=== PATIENT | female | born 1975 | race Caucasian/White ===

== ENCOUNTER → 2018-05-17 | Outpatient (CLI) | payer OTHER ==
[~2018-05-17] MED LIST: ALBU18HF INHALATION; AZIT250T13 PO; CARB200T43 PO; ONDA4TAB35 PO; TOPI50TA13 PO
--- NOTE | 2018-05-23 13:11 | SP ---
DATE OF PROCEDURE: 05/17/2018 OUTPATIENT STUDY: Electroencephalogram. INDICATION: A 43-year-old lady with history of seizures since age 7, on Keppra, last episode in the morning on the day of recording. DESCRIPTION OF PROCEDURE: Routine EEG was recorded digitally. Ejdts-vt-dxypy and vnobc-xs-inm viraj ges were recorded and reviewed. All impedances were measured and recorded. Cap electrodes were plac ed in accordance to International 10-20 system of electrode placement. FINDINGS: Symmetrically distributed background activity of low to medium amplitude ranging between 1 0 to 12 cycles per second was seen throughout the recording in the awake state. Photic stimulation p roduces normal driving. Hyperventilation elicited mild background slowing, but no epileptiform activ ity. When patient gets drowsy, background rhythm also gets slightly slower, 4 to 6 cycles per second . No epileptiform transients were seen. No signs of ongoing electrographic seizures or lateralized slo wing. IMPRESSION: Essentially normal study. Please correlate clinically. Dictated By: EULA PATEL/ANGEL Conf#: [id number] DID#: [id number]
== END | disposition home or self-care (01) ==
LOC: EEG 10:17
PROVIDERS: ATTEND Family Medicine Adult Medicine
DX: G40.909 Epilepsy, unspecified, not intractable, without status epilepticus (principal)
CPT/HCPCS: 95819